=== PATIENT | female | born 1950 ===

== ENCOUNTER 2019-12-22 20:23 | Emergency (ER) | payer OTHER, SELFPAY ==
[2019-12-22 20:47] VITALS: BP 197/86; PULSE 95; RESP 18; TEMP 36.8; O2SAT 96; BMI 27.4
--- NOTE | 2019-12-22 21:18 | ECG_ITS ---
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 Measurements Intervals [place] Rate: 53 P: 48 CT: 170 QRS: 7 QRSD: 94 T: 21 QT: 407 QTc: 383 Interpretive Statements SINUS BRADYCARDIA LOW QRS VOLTAGE IN PRECORDIAL LEADS [QRS DEFLECTION < 1.0 mV IN CHEST LEADS] NONSPECIFIC T-WAVE ABNORMALITY No previous ECG available for comparison Electronically Signed On 12-23-2019 12:41:40 CDT by Serenity Abbasi M.D. [id number]
--- NOTE | 2019-12-22 21:18 | XRR_ITS ---
PROCEDURE INFORMATION: Exam: XR Chest, 1 View Exam date and time: 12/22/2019 9:21 PM Age: 69 years old Clinical indication: Other: Weakness TECHNIQUE: Imaging protocol: XR of the chest Views: 1 view. COMPARISON: No relevant prior studies available. FINDINGS: Lungs: Unremarkable. No consolidation. Pleural space: Unremarkable. No pleural effusion. No pneumothorax. Heart/Mediastinum: Unremarkable. No cardiomegaly. Bones/joints: Unremarkable. XR/XR chest 1V portable [id number] IMPRESSION: Negative for infiltrate
--- NOTE | 2019-12-22 21:20 | ED_ITS ---
HPI - Weakness General: Chief complaint: Weakness Stated complaint: post dizziness/not feeling good Time Seen by Provider: 12/22/19 21:18 Source: patient Mode of arrival: ambulatory Limitations: no limitations History of Present Illness: HPI Narrative: 69-year-old female comes in today with complaints of episodes of weakness with visual changes and dizziness. Patient states 3 separate episodes with the first episode occurring last Tuesday when she was outside in the heat. Patient became pretty dizzy and nauseous and had to go sit down until she recovered. Patient then went several days and had been on a road trip to [place] and was on the way back driving when she became lightheaded and dizzy while driving similar to her previous episode. Patient was seen on Tuesday by a primary care provider and was placed on medications for a sinus infection. Today around 530 this evening patient had another episode where she had the dizziness with visual change but also had some facial numbness and left hand weakness that resolved prior to arrival to the ER. Patient has a significant family history for stroke with her father having a stroke at the age of 52. Patient does take blood pressure medication and medication for cholesterol. NIH scale is 0 at this time. Complaint: numbness Review of Systems General: Reports: 10 or more systems reviewed and unremarkable except in HPI and below Neuro: Reports: numbness in extremities and weakness in extremities Physical Exam Const: COMMON NORMALS: no acute distress and patient oriented x3 GENERAL APPEARANCE: cooperative HENMT: COMMON NORMALS: normocephalic, TM's normal bilaterally and Normal external nose present HEAD & SCALP: normal to inspection and normocephalic NOSE: Normal external nose present TYMPANIC MEMBRANE: TM's normal bilaterally MOUTH: Normal oral and palatal mucosa present THROAT: posterior oropharynx normal Eye: GENERAL EYE: appearance normal, both eyes and all related structures Neck/C-Spine: COMMON NORMALS: full ROM CAROTIDS: Yes bruit positive right Lymph: LYMPHATIC: no lymphadenopathy noted Chest: COMMONS NORMALS: normal inspection of the chest Resp: COMMON NORMALS: normal respiratory effort EFFORT & INSPECTION: Yes able to speak in complete sentences Cardio: COMMON NORMALS: regular rate and regular rhythm RATE: regular rate RHYTHM: regular rhythm GI: COMMON NORMALS: non-tender : COMMON NORMALS: Yes no CVA tenderness BLADDER/KIDNEY EXAM: Yes no CVA tenderness Back/Pelvis: COMMON NORMALS: no CVA tenderness and thoracic and lumbar spine normal to inspection Extremity: COMMON NORMALS: normal to inspection Neuro: COMMON NORMALS: patient oriented x3 and moves all extremities Psych: COMMON NORMALS: mental status grossly normal and cooperative Skin: COMMON NORMALS: no rashes or lesions noted GENERAL SKIN EXAM: no rashes or lesions noted Course Vital Signs: Vital signs: Vital Signs Temperature 98.2 F 12/22/19 20:47 Pulse Rate 56 L 12/22/19 23:08 Respiratory Rate 16 12/22/19 23:08 Blood Pressure 130/73 12/22/19 23:08 Pulse Oximetry 99 12/22/19 23:08 MDM - Weakness MDM Narrative: Medical decision making narrative: Patient comes in today with general symptoms of weakness and malaise and tingling in her left hand and right side of face. Exam noted a bruit in the right carotid. Heart tones were normal. Vital signs were normal except when she first got here her blood pressure was little high but that recovered to normal 130 systolic. No edema is noted in the extremities. Laboratory values noted no anemia blood count was otherwise just normal urinalysis was clear except for some mild leukoesterase and mild leukocytes noted in the microscopy. CT of the head was negative. EKG was normal. Troponin was negative. CMP noted no electrolyte disturbance. Differential diagnosis includes but not limited to TIAs, carotid atherosclerosis, ACS, electrolyte disturbance, sepsis, UTI, pneumonia. Chest x- ray was normal. No signs of significant illness or injury was noted. Do suspect patient may have some mild carotid arthrosclerosis may be contributing to her symptoms or may be she is having some small TIAs. CT did note some microvascular changes this may just be due to age or may be due to underlying atherosclerosis. Recommended patient take a baby aspirin a day along with her routine regimen of blood pressure medicine and anti-cholesterol medications. Patient reported understanding of care plan and will follow-up with her primary care Dr. Kim. Lab Data: Labs: Lab Results 12/22/19 12/22/19 12/22/19 Range/Units 20:43 20:43 20:43 WBC 7.1 (4.0-10.0) 10^3/ uL RBC 4.43 (4.1-5.3) 10^6/u L Hgb 13.8 (11.5-15.3) g/dL Hct 42.7 (37.0-47.0) % MCV 96.4 (81-99) fL MCH 31.2 (28.0-34.0) pg MCHC 32.3 (30.0-36.0) g/dL RDW 12.4 (12.1-15.1) % Plt Count 227 (130-400) 10^3/c mm MPV 10.0 (7.4-10.4) fL Neut % (Auto) 65.7 % Lymph % (Auto) 26.5 % Merrick % (Auto) 6.5 % Eos % (Auto) 0.8 % Baso % (Auto) 0.4 % Neut # (Auto) 4.63 (1.8-7.7) 10^3/u L Lymph # (Auto) 1.9 (0.8-4.8) 10^3/u L Merrick # (Auto) 0.5 (0.2-0.9) 10^3/u L Eos # (Auto) 0.1 (0.0-0.8) 10^3/u L Baso # (Auto) 0.0 (0.0-0.1) 10^3/u L Nucleated RBC % (a uto) 0 % Nucleated RBCs # 0.0 /100WBC Sodium (136-145) mmol/L Potassium (3.5-5.1) mmol/L Chloride (98-107) mmol/L Carbon Dioxide (22-29) mmol/L Anion Gap (5-19) BUN (8-23) mg/dL Creatinine (0.5-0.9) mg/dL GFR Calculation (90-130) mL/min Glucose (65-115) mg/dL Calculated Osmolal ity (285-295) mOsm/k g Lactic Acid 1.4 (0.5-2.2) mmol/L Calcium (8.5-10.5) mg/dL Total Bilirubin (0.15-1.2) mg/dL AST (0-32) U/L ALT (0-33) U/L Alkaline Phosphata se (35-105) IU/L Creatine Kinase (26-192) U/L Troponin T Gen 5 n g/L 6 (0-10) ng/L Total Protein (6.6-8.7) g/dL Albumin (3.5-5.2) g/dL Globulin (1.3-4.6) g/dL Lipase (13-60) U/L Urine Color (Yellow) Urine Appearance (CLEAR) Urine pH (5-7) Ur Specific Gravit y (1.005-1.030) Urine Protein (Negative) Urine Glucose (UA) (Normal) Urine Ketones (Negative) Urine Blood (Negative) Urine Nitrate (Negative) Urine Bilirubin (NEGATIVE) Urine Urobilinogen (Negative) mg/dL Ur Leukocyte Linda ase (Negative) Urine RBC (0-2) /hpf Urine WBC (0-5) /hpf Ur Squamous Epith Cells (0-5) Amorphous Sediment Urine Bacteria (NONE) 12/22/19 12/22/19 Range/Units 20:46 21:48 WBC (4.0-10.0) 10^3/ uL RBC (4.1-5.3) 10^6/u L Hgb (11.5-15.3) g/dL Hct (37.0-47.0) % MCV (81-99) fL MCH (28.0-34.0) pg MCHC (30.0-36.0) g/dL RDW (12.1-15.1) % Plt Count (130-400) 10^3/c mm MPV (7.4-10.4) fL Neut % (Auto) % Lymph % (Auto) % Merrick % (Auto) % Eos % (Auto) % Baso % (Auto) % Neut # (Auto) (1.8-7.7) 10^3/u L Lymph # (Auto) (0.8-4.8) 10^3/u L Merrick # (Auto) (0.2-0.9) 10^3/u L Eos # (Auto) (0.0-0.8) 10^3/u L Baso # (Auto) (0.0-0.1) 10^3/u L Nucleated RBC % (a uto) % Nucleated RBCs # /100WBC Sodium 138 (136-145) mmol/L Potassium 4.0 (3.5-5.1) mmol/L Chloride 102 (98-107) mmol/L Carbon Dioxide 23 (22-29) mmol/L Anion Gap 17.0 (5-19) BUN 20 (8-23) mg/dL Creatinine 0.9 (0.5-0.9) mg/dL GFR Calculation 62.3 L (90-130) mL/min Glucose 116 H (65-115) mg/dL Calculated Osmolal ity 284 L (285-295) mOsm/k g Lactic Acid (0.5-2.2) mmol/L Calcium 10.3 (8.5-10.5) mg/dL Total Bilirubin 0.2 (0.15-1.2) mg/dL AST 15 (0-32) U/L ALT 16 (0-33) U/L Alkaline Phosphata se 91 (35-105) IU/L Creatine Kinase 50 (26-192) U/L Troponin T Gen 5 n g/L (0-10) ng/L Total Protein 7.3 (6.6-8.7) g/dL Albumin 4.7 (3.5-5.2) g/dL Globulin 2.6 (1.3-4.6) g/dL Lipase 32 (13-60) U/L Urine Color Straw (Yellow) Urine Appearance Clear (CLEAR) Urine pH 6 (5-7) Ur Specific Gravit y 1.010 (1.005-1.030) Urine Protein Neg (Negative) Urine Glucose (UA) Norm (Normal) Urine Ketones Negative (Negative) Urine Blood Neg (Negative) Urine Nitrate Negative (Negative) Urine Bilirubin Neg (NEGATIVE) Urine Urobilinogen Norm (Negative) mg/dL Ur Leukocyte Linda ase Trace H (Negative) Urine RBC None (0-2) /hpf Urine WBC 0-4 H (0-5) /hpf Ur Squamous Epith Cells 0-4 H (0-5) Amorphous Sediment Not Reportable Urine Bacteria Trace (NONE) EKG Data^: EKG 1: Attestation: I personally reviewed and interpreted this EKG as follows: (2140, sinus bradycardia with a regular rate at 53 bpm. Nonspecific T wave abnormality, no ectopy.) Discharge Plan Discharge Patient Disposition: Home Clinical Impression: Dizziness Condition: Stable Discharge Orders: Discharge Order (Routine); Ordered 12/22/19 Ordered By: Gal Powers Referrals: Irina Kim MD [Primary Care Provider] - Discharge Diet: Usual diet Discharge Activity: Increase activity as tolerated Patient Instructions: Dizziness (ED) Activity Restrictions/Additional Instructions: Drink plenty of fluids. Avoid the heat of the day. Continue with medications as directed. Take 1 baby aspirin a day. Follow-up with primary care for further evaluation regarding carotid arteries. Return to the ER for worsening symptoms or new concerns. Coding Level of Care Code ED Communications Director for Rnadolph Delacruz Exam Comprehensive
--- NOTE | 2019-12-22 21:37 | CTR_ITS ---
PROCEDURE INFORMATION: Exam: CT Head Without Contrast Exam date and time: 12/22/2019 10:09 PM Age: 69 years old Clinical indication: Patient HX: C/O dizziness and weakness TECHNIQUE: Imaging protocol: Computed tomography of the head without contrast. Radiation optimization: All CT scans at this facility use at least one of these dose optimization techniques: automated exposure control; mA and/or kV adjustment per patient size (includes targeted exams where dose is matched to clinical indication); or iterative reconstruction. COMPARISON: No relevant prior studies available. RADIATION DOSE METRICS: Total DLP (mGy-cm): 857.41 FINDINGS: Brain: Mild diffuse white matter disease likely reflecting chronic microvascular ischemic changes. Ventricles: Normal. No ventriculomegaly. Bones/joints: Unremarkable. No acute fracture. Sinuses: Visualized sinuses are unremarkable. No fluid levels. Mastoid air cells: Visualized mastoid air cells are well aerated. Soft tissues: Unremarkable. CT/CT head wo con* [id number] IMPRESSION: Negative for intracranial hemorrhage or mass effect Radiation Dose CTDIVOL = (mGy): DLP = 857.41 (mGy-cm)
[2019-12-22 21:57] LABS: Basophils % 0.4 %; Eosinophils # 0.1 10^3/uL (0.0-0.8); Eosinophils % 0.8 %; Hematocrit 42.7 % (37.0-47.0); Hemoglobin 13.8 g/dL (11.5-15.3); Lymphocytes # 1.9 10^3/uL (0.8-4.8); Lymphocytes % 26.5 %; Mean Corpuscular HGB Conc 32.3 g/dL (30.0-36.0); Mean Corpuscular Hemoglobin 31.2 pg (28.0-34.0); Mean Corpuscular Volume 96.4 fL (81-99); Monocytes # 0.5 10^3/uL (0.2-0.9); Monocytes % 6.5 %; Neutrophils # 4.63 10^3/uL (1.8-7.7); Neutrophils % 65.7 %; Nucleated Red Blood Cells % 0 %; Platelet Count 227 10^3/cmm (130-400); Red Blood Count 4.43 10^6/uL (4.1-5.3); Red Cell Distribution Width 12.4 % (12.1-15.1); White Blood Count 7.1 10^3/uL (4.0-10.0)
[2019-12-22 22:02] VITALS: BP 151/95; PULSE 54; RESP 16; O2SAT 94
[2019-12-22 22:18] LABS: Lactic Sepsis W/Reflex 1.4 mmol/L (0.5-2.2)
[2019-12-22 22:18] LABS: Add Urine Microscopic? YES; Bilirubin Urine Neg (NEGATIVE); Blood Urine Neg (Negative); Glucose Urine UA Norm (Normal); Ketones Urine Negative (Negative); Leukocyte Esterase Urine Trace (Negative); Nitrate Urine Negative (Negative); Protein Urine Neg (Negative); Urine Appearance Clear (CLEAR); Urine Color Straw (Yellow); Urobilinogen Urine Norm (Negative); pH Urine 6 (5-7)
[2019-12-22 22:20] LABS: Troponin T (5th) Once 6 ng/L (0-10)
[2019-12-22 22:46] LABS: WBC Urine 0-4 /hpf (0-5)
[2019-12-22 22:47] LABS: Add Urine Culture? No; Bacteria Urine TRACE; Squamous Epithelial Cell Urine 0-4 (0-5)
[2019-12-22 23:08] VITALS: BP 130/73; PULSE 56; RESP 16; O2SAT 99
[2019-12-22 23:12] LABS: Alanine Aminotransferase 16 U/L (0-33); Albumin Level 4.7 g/dL (3.5-5.2); Alkaline Phosphatase 91 IU/L (35-105); Aspartate Amino Transferase 15 U/L (0-32); Blood Urea Nitrogen 20 mg/dL (8-23); Calcium 10.3 mg/dL (8.5-10.5); Carbon Dioxide 23 mmol/L (22-29); Chloride 102 mmol/L (98-107); Creatine Phosphokinase 50 U/L (26-192); Creatinine Clr Calc Pharmacy 62.7342; Globulin 2.6 g/dL (1.3-4.6); Glomerular Filtration Rate 62.3 mL/min (90-130); Glucose 116 mg/dL (65-115); Lipase 32 U/L (13-60); Osmolality Calculated 284 mOsm/kg (285-295); Sodium 138 mmol/L (136-145); Total Bilirubin 0.2 mg/dL (0.15-1.2); Total Protein 7.3 g/dL (6.6-8.7)
[2019-12-22 23:37] VITALS: PULSE 56; RESP 16; O2SAT 96
== END 2019-12-22 23:37 | disposition home or self-care (01) ==
PROVIDERS: Emergency Provider Nurse Practitioner Family; PCP Family Medicine
DX: R42 Dizziness and giddiness (principal)
CPT/HCPCS: 12345; 36415; 70450; 71045; 80053; 81001; 81003; 82550; 83605; 83690; 84484; 85025; 87040; 93005; 99283

== ENCOUNTER 2020-03-19 10:37 | Outpatient (CLI) | payer OTHER, SELFPAY ==
--- NOTE | 2020-03-19 10:42 | MM_ITS ---
WS: [id number] BILATERAL SCREENING DIGITAL MAMMOGRAM WITH CAD HISTORY: SCREENING COMPARISON: 10/10/2018 and 03/17/2017 Bilateral CC and MLO views submitted. Computer aided detection analyzed. Breast composition: There are scattered areas of fibroglandular density. No suspicious masses, microc alcifications or architectural distortion. Benign calcification LEFT breast. MM/[place] [id number] IMPRESSION: BI-RADS: 2-Benign FOLLOW UP: 1 Year Follow-up
== END 2020-03-19 10:38 | disposition home or self-care (01) ==
LOC: RADSHAW 10:40
PROVIDERS: PCP Family Medicine; Visit Provider Family Medicine
DX: Z12.31 Encounter for screening mammogram for malignant neoplasm of breast (principal)
CPT/HCPCS: 77067

== ENCOUNTER → 2021-01-09 15:20 | Outpatient (BNVA) | payer OTHER, SELFPAY | PROVIDERS: PCP Family Medicine; Visit Provider Emergency Medicine | DX: Z20.822 Contact with and (suspected) exposure to COVID-19 (principal); J06.9 Acute upper respiratory infection, unspecified | CPT/HCPCS: 87635 ==

== ENCOUNTER 2021-01-14 09:51 | Outpatient (CLI) | payer OTHER, SELFPAY ==
[2021-01-14 10:04] VITALS: BP 135/78; PULSE 65; RESP 16; TEMP 36.6; O2SAT 93; BMI 62.2
[2021-01-14 11:25] VITALS: BP 102/66; PULSE 63; RESP 16; TEMP 36.4; O2SAT 94
== END 2021-01-14 09:52 | disposition home or self-care (01) ==
LOC: OPS 09:59
PROVIDERS: PCP Family Medicine; Visit Provider Family Medicine
DX: U07.1 COVID-19 (principal)
CPT/HCPCS: 96365